=== PATIENT | female | born 1995 | race Caucasian/White ===

== ENCOUNTER 2021-10-15 20:18 | Emergency (ER) | payer MEDICAID, SELFPAY ==
--- NOTE | 2021-10-15 20:22 | ECG_ITS ---
Test Reason : cp Blood Pressure : / mmHG Vent. Rate : 110 BPM Atrial Rate : 110 BPM P-R Int : 160 ms QRS Dur : 084 ms QT Int : 336 ms P-R-T Axes : 031 009 024 degrees QTc Int : 454 ms Sinus tachycardia Otherwise normal ECG No previous ECGs available Referred By: Generic ED Physician Electronically Signed By:MARK JURADO MD
[2021-10-15 20:26] VITALS: BP 115/70; PULSE 102; RESP 18; TEMP 37; O2SAT 100; BMI 43.0
[2021-10-15 20:39] LABS: MANUAL DIFF FLAG NO
[2021-10-15 20:47] LABS: Basophils Percent Auto 0.1 % (0-2); Eosinophils Percent Auto 0.6 % (0-4); Hematocrit 34.1 % (37.0-47.0); Hemoglobin 10.5 g/dl (12.0-16.0); Imm Gran Abs Auto 0.01 X10*3/uL (0.00-0.03); Imm Gran Pct Auto 0.1 % (0.0-0.4); Lymphocytes Absolute Auto 2.3 X10*3/uL (1.2-4.9); Lymphocytes Percent Auto 33.3 % (20-40); Mean Corpuscular HGB Conc 30.8 g/dl (31.0-35.0); Mean Platelet Volume 10.7 fL (9.4-12.3); Monocytes Absolute Auto 0.4 X10*3/uL (0.1-1.2); Neutrophils Absolute Auto 4.2 x10*3/uL (2.0-8.3); Neutrophils Percent Auto 59.9 % (45-73); Platelet Count 274 X10*3/uL (160-400); Red Blood Count 4.37 X10*6/uL (4.20-5.50); Red Cell Distribution Width 14.5 % (11.0-16.0)
[2021-10-15 21:04] LABS: Alanine Aminotransferase 11 U/L (0-31); Albumin Level 3.9 g/dL (3.5-5.0); Alkaline Phosphatase 88 U/L (39-117); Anion Gap 11 (12-20); Aspartate Amino Transferase 15 U/L (5-31); Bilirubin Total < 0.2 mg/dL (0.0-1.0); Blood Urea Nitrogen 12 mg/dL (9-16); Calcium 8.3 mg/dL (8.4-10.2); Carbon Dioxide 24 mmol/L (22-29); Chloride 106 mmol/L (96-108); Creatinine Clr Calc Pharmacy 122.7; Estimated Glomerular Filt Rate > 60; Glucose Random 102 mg/dL (60-115); Potassium 3.9 mmol/L (3.3-5.1); Sodium 137 mmol/L (135-145)
[2021-10-15 21:08] LABS: Troponin-I High Sensitivity < 3.5 ng/L (<3.5-17.0)
[2021-10-15 23:15] LABS: HCG Quantitative < 2 mIU/mL
[2021-10-16 01:17] LABS: Appearance Urine HAZY; Color Urine YELLOW; Glucose Urine UA NEG (NEG); Leukocyte Esterase Urine NEG (NEG); Nitrite Urine NEG (NEG); PH 6.5 (5.0-8.0); Specific Gravity - Urine 1.025 (1.005-1.025); Urine Blood NEG (NEG); Urine Ketones NEG (NEG); Urine Protein NEG (NEG-TRACE)
--- NOTE | 2021-10-16 01:38 | ED.CHESTPAIN ---
HPI - Chest Pain General Chief Complaint: Chest Pain Stated Complaint: chest pain, sob, dizziness, Left side pain Time Seen by Provider: 10/15/21 22:45 Source: patient Mode of arrival: ambulatory History of Present Illness HPI narrative: 26-year-old female who presents with complaints of sharp transient left-sided chest wall pain that was not associated with any dizziness, diaphoresis, nausea but states she initially felt short of breath and then has past but she notes that she has had left arm pain and rib pain. This has not been associated with any fever, chills, nausea, vomiting but patient does states that she is anemic but does not wish to take iron pills and reports she has had heavy periods. LMP is 09/21. No family history of early cardiac disease. Related Data Allergies Allergy/AdvReac Type Severity Reaction Status Date / Time No Known Allergies Allergy Unverified 12/19/19 16:43 [No Known Allergies*] Review of Systems Review of Systems: Pertinent positives and negatives as stated in HPI 10 point review of systems is otherwise negative. PMFSH Past Medical History Source: nursing notes reviewed Social History Social History Advance Directives: No Advance Directives Information Provided: Yes Physical Exam Vital Signs: Vital Signs: Last Vital Signs Temp 98.6 F 10/15/21 20:26 Pulse 102 H 10/15/21 20:26 Resp 18 10/15/21 20:26 BP 115/70 10/15/21 20:26 Pulse Ox 100 10/15/21 20:26 O2 Del Method 10/15/21 20:26 BMI result Body Mass Index 43.0 VITAL SIGNS: Reviewed. GENERAL: Well developed, well nourished, in no acute distress. HEAD: Normocephalic/atraumatic EYES: PERRLA, EOMI EARS: Ext canals without abnormality OROPHARYNX: no oral lesions noted, posterior pharynx clear LUNGS: Normal breath sounds. No adventitious sounds or accessory muscle use. SpO2<100> CARDIOVASCULAR: Regular rate and rhythm without noted murmurs, no JVD or lower extremity edema. ABDOMEN: Soft, non-tender, non-distended with bowel sounds. MUSCULOSKELETAL: No tenderness, deformities, or effusions noted on gross inspection. EXTREMITIES: No cyanosis, clubbing or edema. SKIN: Inspection of the skin reveals no rashes NEUROLOGIC: Alert and oriented x 4. Strength and sensation to light touch were grossly intact x 4. Course Course Course Narrative: 26-year-old female with history and clinical presentation consistent with left anterior chest wall pain and low clinical suspicion for pneumonia, cardiac ischemia. Patient is PERC negative Review of all investigations otherwise negative for acute findings, EKG is without evidence of cardiac ischemia and patient is not . Patient was provided with all results and encouraged to follow-up with primary care provider on Monday morning for further evaluation and outpatient workup. MDM - Chest Pain Lab Data Result diagrams: 10/15/21 20:35 10/15/21 20:35 Labs: Lab Results 10/15/21 10/15/21 10/15/21 Range/Units 20:35 20:35 20:35 WBC 7.0 (4.8-10.8) X10*3/uL RBC 4.37 (4.20-5.50) X10*6/uL Hgb 10.5 L (12.0-16.0) g/dl Hct 34.1 L (37.0-47.0) % MCV 78.0 L (80.0-98.0) fL MCH 24.0 L (27.0-33.0) pg MCHC 30.8 L (31.0-35.0) g/dl RDW 14.5 (11.0-16.0) % Plt Count 274 (160-400) X10*3/uL MPV 10.7 (9.4-12.3) fL Immature Gran % (Auto) 0.1 (0.0-0.4) % Neut % (Auto) 59.9 (45-73) % Lymph % (Auto) 33.3 (20-40) % [place] % (Auto) 6.0 (2-11) % Eos % (Auto) 0.6 (0-4) % Baso % (Auto) 0.1 (0-2) % Lymph # (Auto) 2.3 (1.2-4.9) X10*3/uL [place] # (Auto) 0.4 (0.1-1.2) X10*3/uL Eos # (Auto) 0.0 (0.0-0.4) X10*3/uL Baso # (Auto) 0.0 (0.0-0.2) X10*3/uL Abs Immat Gran (auto) 0.01 (0.00-0.03) X10*3/uL Absolute Neuts (auto) 4.2 (2.0-8.3) x10*3/uL Absolute Nucleated RBC 0.000 (0.0-0.012) X10*3/uL Nucleated RBC % (auto) 0.0 (0.0-0.2) /100WBC Sodium 137 (135-145) mmol/L Potassium 3.9 (3.3-5.1) mmol/L Chloride 106 (96-108) mmol/L Carbon Dioxide 24 (22-29) mmol/L Anion Gap 11 L (12-20) BUN 12 (9-16) mg/dL Creatinine 0.75 (0.5-1.4) mg/dL Estim Creat Clear Calc 122.7 Estimated GFR > 60 Random Glucose 102 (60-115) mg/dL Calcium 8.3 L (8.4-10.2) mg/dL Total Bilirubin < 0.2 (0.0-1.0) mg/dL AST 15 (5-31) U/L ALT 11 (0-31) U/L Alkaline Phosphatase 88 (39-117) U/L Troponin I High Sens < 3.5 (<3.5-17.0) ng/L Total Protein 7.0 (6.5-8.0) g/dL Albumin 3.9 (3.5-5.0) g/dL Beta HCG, Quant < 2 mIU/mL Urine Color Urine Appearance Urine pH (5.0-8.0) Ur Specific [place] (1.005-1.025) Urine Protein (NEG-TRACE) MG/DL Urine Glucose (UA) (NEG) MG/DL Urine Ketones (NEG) MG/DL Urine Blood (NEG) Urine Nitrite (NEG) Ur Leukocyte Esterase (NEG) 10/16/21 Range/Units 00:54 WBC (4.8-10.8) X10*3/uL RBC (4.20-5.50) X10*6/uL Hgb (12.0-16.0) g/dl Hct (37.0-47.0) % MCV (80.0-98.0) fL MCH (27.0-33.0) pg MCHC (31.0-35.0) g/dl RDW (11.0-16.0) % Plt Count (160-400) X10*3/uL MPV (9.4-12.3) fL Immature Gran % (Auto) (0.0-0.4) % Neut % (Auto) (45-73) % Lymph % (Auto) (20-40) % [place] % (Auto) (2-11) % Eos % (Auto) (0-4) % Baso % (Auto) (0-2) % Lymph # (Auto) (1.2-4.9) X10*3/uL [place] # (Auto) (0.1-1.2) X10*3/uL Eos # (Auto) (0.0-0.4) X10*3/uL Baso # (Auto) (0.0-0.2) X10*3/uL Abs Immat Gran (auto) (0.00-0.03) X10*3/uL Absolute Neuts (auto) (2.0-8.3) x10*3/uL Absolute Nucleated RBC (0.0-0.012) X10*3/uL Nucleated RBC % (auto) (0.0-0.2) /100WBC Sodium (135-145) mmol/L Potassium (3.3-5.1) mmol/L Chloride (96-108) mmol/L Carbon Dioxide (22-29) mmol/L Anion Gap (12-20) BUN (9-16) mg/dL Creatinine (0.5-1.4) mg/dL Estim Creat Clear Calc Estimated GFR Random Glucose (60-115) mg/dL Calcium (8.4-10.2) mg/dL Total Bilirubin (0.0-1.0) mg/dL AST (5-31) U/L ALT (0-31) U/L Alkaline Phosphatase (39-117) U/L Troponin I High Sens (<3.5-17.0) ng/L Total Protein (6.5-8.0) g/dL Albumin (3.5-5.0) g/dL Beta HCG, Quant mIU/mL Urine Color YELLOW Urine Appearance HAZY Urine pH 6.5 (5.0-8.0) Ur Specific [place] 1.025 (1.005-1.025) Urine Protein NEG (NEG-TRACE) MG/DL Urine Glucose (UA) NEG (NEG) MG/DL Urine Ketones NEG (NEG) MG/DL Urine Blood NEG (NEG) Urine Nitrite NEG (NEG) Ur Leukocyte Esterase NEG (NEG) ECG Data ECG #1: Attestation: I personally reviewed and interpreted this ECG as follows: Prior ECG tracings: not available for review Interpretation: Sinus tachycardia, HR-110, AR/QRS/QTC are within normal limits. Discharge Plan Discharge Clinical Impression: Atypical chest pain Patient Disposition: Home, Self-Care Instructions: Chest Wall Pain (ED) Additional Instructions: Please call the office of your primary care provider on Monday morning and follow-up for re-evaluation further outpatient management. Referrals: [facility] [Primary Care Provider] -
== END 2021-10-16 01:52 | disposition home or self-care (01) ==
PROVIDERS: Emergency Provider Student in an Organized Health Care Education/Training Program
DX: R07.89 Other chest pain (principal); R00.0 Tachycardia, unspecified; D64.9 Anemia, unspecified
CPT/HCPCS: 36415; 80053; 81003; 84484; 84702; 85025; 93005; 99283

== ENCOUNTER 2021-11-22 11:52 | Outpatient (REF) | payer MEDICAID, SELFPAY ==
--- NOTE | ~2021-11-22 | US_ITS ---
EXAMINATION: US DIAGNOSTIC ULTRASOUND BREAST, LEFT CLINICAL INFORMATION: Left breast focal tenderness upper outer quadrant. COMPARISON: None. TECHNIQUE: Ultrasound of the breast is performed with real-time pfeiffer scale imaging and color Doppler. FINDINGS: There is no focal suspicious finding. There is no solid mass, architectural abnormality, duct ectasia, or edema in the soft tissue planes. Results are discussed with the patient at time of visit. US/US breast LT limited IMPRESSION: No suspicious left breast findings. ASSESSMENT: BI-RADS 1: Negative RECOMMENDATION: 1. Patient should be managed based on the clinical impression. 2. Otherwise, routine annual screening mammography starting at age 40..
== END 2021-11-22 11:53 | disposition home or self-care (01) ==
LOC: HO.MAMMO 11:52
PROVIDERS: PCP General Practice; Visit Provider General Practice
DX: N64.4 Mastodynia (principal)
CPT/HCPCS: 76642

== ENCOUNTER → 2022-06-29 09:03 | Outpatient (BNVA) | payer MEDICAID, SELFPAY | PROVIDERS: PCP General Practice; Referring Provider General Practice; Visit Provider Internal Medicine Cardiovascular Disease | DX: R00.2 Palpitations (principal) | CPT/HCPCS: 99202 ==

== ENCOUNTER → 2022-07-07 14:13 | Outpatient (REF) | payer MEDICAID, SELFPAY ==
--- NOTE | 2022-07-07 14:24 | HM_ITS ---
* Total monitoring time 1 day 10 hours. * Underlying rhythm is sinus. Average ventricular rate 86/Min. Range 65 to 146/Min. * No significant supraventricular or ventricular ectopy. * No sustained arrhythmias. * No significant pauses or AV blocks. * Patient marker count used once in association with sinus. Diary entry correlates with sinus. MTDD
--- NOTE | 2022-07-07 14:24 | CA_ITS ---
Transthoracic Echo with Contrast Patient (Last, First, Middle): Sienna Ortega, Gender: Female Date of : 1995 Age: 27 Procedure Date: 07/07/2022 Procedure Type: Transthoracic Echo with Contrast Location: OP Height: 152.4 cm Weight: 81.65 kg BSA: 1.78 m2 Heart Rate: bpm BP: 112 / 75 mmHg Teaching Pastor: ISMA Referring MD: Rohan Gayle MD Cable Assembler: Rohan Gayle MD Symptoms: R00.2 - Palpitations Study Quality: Fair, contrast ECG Rhythm: Sinus Conclusions: - Normal study Findings Left Ventricle Normal left ventricular size, thickness, and systolic function. The visually estimated ejection fraction is between 55-60%. Diastolic function is normal for age. Right Ventricle Normal right ventricular cavity size and systolic function. Atria Both atria are normal in size. There is no evidence of interatrial shunt. Aortic Valve Normal aortic valve structure and function. There is no aortic valve stenosis. There is no aortic valve regurgitation. Mitral Valve Normal mitral valve structure and function. There is trace mitral valve regurgitation. There is no mitral valve stenosis. Pulmonic Valve The pulmonic valve is likely normal. Tricuspid Valve Normal tricuspid valve structure. There is trace tricuspid valve regurgitation. The right ventricular systolic pressure is normal. The right ventricular systolic pressure is 18 mmHg. Normal right atrial pressure. There is no evidence of pulmonary hypertension. Great Vessels All visible segments of the aorta are normal in size. The pulmonary artery was not well visualized. Venous The inferior vena cava is normal in size and collapses greater than 50% with inspiration. Pericardium/Pleural There is no evidence of pericardial effusion. Prior Study Comparison No prior study available for comparison. Measurements 2D Linear Measurements IVSd: 0.90 0.6-0.9/0.6-1.0 cm LVIDd: 4.80 3.9-5.3/4.2-5.9 cm LVIDd Index: 2.70 2.4-3.2/2.2-3.1 cm/m2 LVIDs: 2.72 2.0-3.6 cm LVPWd: 0.80 0.7-1.1 cm LA Diam: 3.20 2.7-3.8/3.0-4.0 cm LAIDs Index: 1.80 1.5-2.3 cm/m2 LV Mass: 170.99 67-162/88-224 g LV Mass Index: 96.06 43-95/49-115 g/m2 LVOT Diam: 2.00 3.0+(-)1.3 cm Mitral Valve MV Pk E: 0.70 MV PK A: 0.59 MV Decel Time: 139.00 E/A: 1.20 E'Lateral: 16.50 E'Medial: 8.70 E/E' Med: 8.10 E/E' Lat: 4.30 PHT: 41.00 MVA PHT: 5.37 Decel [place]: 5.05 Aortic Valve AoV Pk Brayden: 1.38 AoV Mn Brayden: 1.00 AoV VTI: 0.29 AoV Pk Grad: 8.00 Aov Mn Grad: 4.00 LATONYA Cont.VTI: 2.51 LVOT LVOT Pk Brayden: 1.11 LVOT Mn Brayden: 0.77 LVOT VTI: 0.23 LVOT Pk Grad: 5.00 LVOT Mn Grad: 3.00 LVOT Diam: 2.00 LVOT Area: 3.14 Diastolic Function MV Pk E: 0.70 MV Pk A: 0.59 E/A: 1.20 E'Medial: 8.70 E/E' Med: 8.10 E' Laterial: 16.50 E/E' Lat: 4.30 Right Ventricle TAPSE (mm): 17.80 TVS' Brayden: 11.10 Tricuspid Valve TR Pk Brayden: 1.93 TR Pk Grad: 15.00 RA Press: 3.00 RVSP: 18.00 Great Vessels Aorta Sinus of Valsalva: 2.95 2.0-3.[address] [place]: 2.01 1.7-3.4 cm Ao Asc: 2.20 2.1-3.4 cm Updated in Other Vendor System with Status of Final Rohan Gayle MD electronically signed on 07/08/2022 8:22:41 AM with status of Final
== END ==
LOC: HO.CARD 14:13
PROVIDERS: PCP General Practice; Visit Provider Internal Medicine Cardiovascular Disease
DX: R00.2 Palpitations (principal)
CPT/HCPCS: 93225; 93306; Q9957

== ENCOUNTER 2023-08-21 16:27 | Outpatient (REF) | payer MEDICAID, SELFPAY ==
--- NOTE | ~2023-08-21 | XR_ITS ---
EXAMINATION: XR CHEST CLINICAL INFORMATION: Posterior lower rib cage pain with inspiration for 5 days. Patient states shortness of breath with pain in lower ribs upon inspiration with no known injury. COMPARISON: None available. TECHNIQUE: 2 views of the chest were obtained. FINDINGS: Lung volumes are low. Heart size is normal. There is no gross pneumothorax. No pleural effusion. No new focal consolidation to suggest pneumonia. XR/XR chest 2V IMPRESSION: No evidence of pneumonia.
== END 2023-08-21 16:28 | disposition home or self-care (01) ==
LOC: HO.XRAY 16:27
PROVIDERS: Visit Provider Internal Medicine Geriatric Medicine
DX: R07.81 Pleurodynia (principal)
CPT/HCPCS: 71046

== ENCOUNTER 2023-08-28 03:35 | Emergency (ER) | payer MEDICAID, SELFPAY ==
[2023-08-28 03:37] VITALS: BP 154/94; PULSE 117; RESP 18; TEMP 36.6; O2SAT 98; BMI 37.1
[2023-08-28 04:27] LABS: Influenza A PCR NEGATIVE (Negative); Influenza B PCR NEGATIVE (Negative); Resp Syncy Virus RNA Qual PCR NEGATIVE (Negative); SARS COV2 PCR INHOUSE NEGATIVE (Negative)
--- NOTE | 2023-08-28 07:24 | PC.NURSE ---
Resumed care of patient, she is currently resting comfortably at this time on RA, breathing pattern even and unlabored, lungs clear. MD at bedside with patient.
--- NOTE | 2023-08-28 07:31 | ED.SOB ---
HPI - SOB/Dyspnea General Chief Complaint: Dyspnea Stated Complaint: trouble breathing Time Seen by Provider: 08/28/23 07:11 Source: patient Mode of arrival: ambulatory History of Present Illness ED Provider: Dr Domingo HPI Narrative: 28-year-old female with history of asthma states she has had nasal congestion sore throat and dry cough with dyspnea for the past week without fever or chills. Related Data Home Medications ?Medication ?Instructions ?Recorded ?Confirmed albuterol sulfate 90 mcg/actuation 2 puff inhalation QID PRN 06/29/22 06/29/22 aerosol inhaler (ProAir HFA) vit no.95-ferrous 1 tab PO DAILY 06/29/22 06/29/22 fumarate 28 mg-folic acid 800 mcg tablet () Previous Rx's ?Medication ?Instructions ?Recorded prednisone 50 mg tablet 50 mg PO DAILY 4 days #4 tabs 08/28/23 Allergies Allergy/AdvReac Type Severity Reaction Status Date / Time Fish Containing Products AdvReac Mild tongue Verified 08/28/23 03:41 cats Allergy Intermediate Sneezing Uncoded 06/29/22 09:10 Review of Systems Review of Systems: Pertinent positives and negatives as stated in HPI [facility] Past Medical History Source: nursing notes reviewed Family History Family History Mother Goiter Father Hypertension Maternal Grandmother Cancer Social History Social History Alcohol intake: never Patient Tobacco Use Status: Never used Tobacco Advance Directives: No Do you have a plan to hurt others: No Plan Physical Exam Vital Signs: Vital Signs: Last Vital Signs Temp 97.9 F 08/28/23 03:37 Pulse 117 H 08/28/23 03:37 Resp 18 08/28/23 03:37 BP 154/94 H 08/28/23 03:37 Pulse Ox 98 08/28/23 03:37 O2 Del Method Room Air 08/28/23 03:37 BMI result Body Mass Index 37.1 VITAL SIGNS: Reviewed. GENERAL: Elevated BMI, Well developed, well nourished, in no acute distress. HEAD: Normocephalic/atraumatic EYES: PERRLA, EOMI EARS: Ext canals without abnormality, TMs non-bulging and non-erythematous NOSE: Nares patent bilateral OROPHARYNX: no oral lesions noted, posterior pharynx clear and non-erythematous without noted tonsillar enlargement/erythema/exudates NECK: Supple, no adenopathy LUNGS: Normal breath sounds. No adventitious sounds or accessory muscle use. SpO2<98> CARDIOVASCULAR: Regular rate and rhythm without noted murmurs ABDOMEN: Soft, non-tender, non-distended with bowel sounds. MUSCULOSKELETAL: No tenderness, deformities, or effusions noted on gross inspection. EXTREMITIES: No cyanosis, clubbing or edema. SKIN: Inspection of the skin reveals no rashes NEUROLOGIC: Alert and oriented x 4. Strength and sensation to light touch were grossly intact x 4. Medical Decision Making Medical Decision Making [facility] Narrative: 28-year-old female with history and clinical presentation, DDX: Allergic rhinitis, postnasal drip, asthma without exacerbation I reviewed all investigations and viral testing is negative for influenza/RSV/COVID-19. I reviewed the chest x-ray from 08/20 I do not appreciate any infiltrates or venous congestion but chest x-ray is pending official radiologic read. Patient provided with recommendations for seasonal allergy medication as well as placed on a short course of steroids and received the 1st dose here in the emergency room. Differential Diagnosis Differential Diagnoses: The differential diagnosis associated with the presentation includes Please see the discussion above Admission/Observation Consideration of admission/observation: Escalation of care including admission/observation considered Please see the discussion above Lab Data [facility] Lab Attestation statement: I reviewed the patient's lab results. Please see the discussion above Labs: Lab Results 08/28/23 Range/Units 03:44 Influenza Type A (PCR) NEGATIVE (Negative) Influenza Type B (PCR) NEGATIVE (Negative) RSV RNA Qual (PCR) NEGATIVE (Negative) SARS-CoV-2 RNA (RT-PCR) NEGATIVE (Negative) Radiology Impression Discussion of test interpretation with radiology: I have reviewed the radiologist's reading. Radiologist Impression: Please see the discussion above External Record Review External record reviewed: Outpatient record and Prior outpatient labs Critical Care Time Critical Care Time Critical Care Time: Yes Total Critical Care Time: 30 Attestation: I personally attest to this time spent taking care of the patient. Discharge Plan Discharge Clinical Impression: Asthma, Allergic rhinitis Patient Disposition: Home, Self-Care Instructions: Asthma (ED), Allergic Rhinitis (ED) Additional Instructions: 1. Recommend initiating daily Claritin/Flonase during the allergy season. 2. Complete the short course of steroids as prescribed. 3. Follow-up with your primary care doctor on or Monday of this week. Return to the ER for any worsening symptoms. Prescriptions: New prednisone 50 mg tablet 50 mg PO DAILY 4 Days Qty: 4 0RF No Action PNV cmb#95-ferrous fumarate-FA [] 28 mg iron- 800 mcg tablet 1 tab PO DAILY albuterol sulfate [ProAir HFA] 90 mcg/actuation HFA aerosol inhaler 2 puff inhalation QID PRN Referrals: Alejandra Patel MD [Primary Care Provider] - Print Language: Estonian
[2023-08-28] MEDS: predniSONE 10 MG TABLET 50 MG PO (08:10)
[2023-08-28 08:12] VITALS: BP 128/88; PULSE 100; RESP 16; TEMP 37.2; O2SAT 95
[2023-08-28 08:13] VITALS: BP 128/88; PULSE 100; RESP 16; TEMP 37.2; O2SAT 95
== END 2023-08-28 08:14 | disposition home or self-care (01) ==
PROVIDERS: Emergency Provider Student in an Organized Health Care Education/Training Program; PCP General Practice
DX: J45.909 Unspecified asthma, uncomplicated (principal)
CPT/HCPCS: 0241U; 99283; 99284

== ENCOUNTER 2023-10-24 17:01 | Emergency (ER) | payer MEDICAID, SELFPAY ==
[2023-10-24] VITALS (7 sets, daily range): BP systolic 113–146; BP diastolic 76–96; PULSE 77–106; RESP 14–18; TEMP 36.3–36.9; O2SAT 98–100; BMI 39.0
--- NOTE | ~2023-10-24 | CT_ITS ---
EXAMINATION: CT HEAD WITHOUT CONTRAST CLINICAL INFORMATION: Migraine. COMPARISON: None available. TECHNIQUE: Contiguous axial imaging was performed from the skull base to vertex without intravenous administration of contrast. This CT examination was performed using dose optimization techniques as appropriate, variously including the following: *Automated exposure control *Adjustment of mA and/or kV according to patient size (this includes techniques or standardized protocols for targeted exams where dose is matched to indication/reason for exam; i.e. extremities or head) *Use of iterative reconstruction technique DLP: 571 mGy-cm FINDINGS: There is no acute intra-axial, extra-axial bleed, masses or midline shift. There is no acute infarction in evolution. There is no edema. The pfeiffer to white matter differentiation is maintained normal. The lateral ventricles are symmetrical in size and configuration without enlargement. Bone windows reveal no calvarial abnormality. Bilateral paranasal sinuses and mastoid air cells are well-aerated. CT/CT head/brain wo IV con IMPRESSION: No acute intracranial process seen.
[2023-10-24 17:37] LABS: MANUAL DIFF FLAG NO
[2023-10-24 17:42] LABS: Basophils Percent Auto 0.2 % (0-2); Eosinophils Percent Auto 0.3 % (0-4); Hematocrit 37.1 % (37.0-47.0); Hemoglobin 11.3 g/dl (12.0-16.0); Imm Gran Abs Auto 0.01 X10*3/uL (0.00-0.03); Imm Gran Pct Auto 0.2 % (0.0-0.4); Lymphocytes Absolute Auto 1.7 X10*3/uL (1.2-4.9); Lymphocytes Percent Auto 26.8 % (20-40); Mean Corpuscular HGB Conc 30.5 g/dl (31.0-35.0); Mean Corpuscular Hemoglobin 24.2 pg (27.0-33.0); Mean Corpuscular Volume 79.6 fL (80.0-98.0); Mean Platelet Volume 10.9 fL (9.4-12.3); Monocytes Absolute Auto 0.4 X10*3/uL (0.1-1.2); Neutrophils Absolute Auto 4.1 x10*3/uL (2.0-8.3); Neutrophils Percent Auto 66.5 % (45-73); Platelet Count 280 X10*3/uL (160-400); Red Blood Count 4.66 X10*6/uL (4.20-5.50); Red Cell Distribution Width 15.5 % (11.0-16.0); White Blood Count 6.2 X10*3/uL (4.8-10.8)
--- NOTE | 2023-10-24 17:50 | PC.NURSE ---
Pt comes to ED today with c/o dizziness, lightheaded, LINDQUIST, nausea, brain fog, and feeling faint. Pt reports symptoms started at the beginning of the month and have been progressively worse with today being the most intense. LINDQUIST pain is 7/10 and reports LINDQUIST every day. VSS, A&Ox3, afebrile. Blood labs pending and Pt will be providing urine spec when she can produce. Pt is resting quietly with rug layer at bedside.
[2023-10-24 17:55] LABS: Alanine Aminotransferase 8 U/L (0-31); Albumin Level 4.1 g/dL (3.5-5.0); Alkaline Phosphatase 86 U/L (39-117); Anion Gap 13 (12-20); Aspartate Amino Transferase 13 U/L (5-31); Bilirubin Direct < 0.2 mg/dL (0.0-0.5); Bilirubin Total 0.2 mg/dL (0.0-1.0); Blood Urea Nitrogen 10 mg/dL (9-16); Calcium 9.1 mg/dL (8.4-10.2); Carbon Dioxide 25 mmol/L (22-29); Chloride 106 mmol/L (96-108); Creatinine Clr Calc Pharmacy 115.5; Estimated Glomerular Filt Rate > 60; Glucose Random 105 mg/dL (60-115); Lipase 10 U/L (8-78); Potassium 3.9 mmol/L (3.3-5.1); Sodium 140 mmol/L (135-145); Total Protein 7.4 g/dL (6.5-8.0)
--- NOTE | 2023-10-24 18:58 | PC.NURSE ---
received report from Nikki Olvera RN, assume care of pt at this time
[2023-10-24 19:01] LABS: Appearance Urine Clear; Color Urine Yellow; Glucose Urine UA Negative (Negative); Leukocyte Esterase Urine Negative (Negative); Nitrite Urine Negative (Negative); PH 7.5 (5.0-9.0); Urine Blood Negative (Negative); Urine Ketones Negative (Negative); Urine Protein Negative (Neg-Trace)
[2023-10-24 19:03] LABS: UPreg QC Valid YES; Urine Pregnancy NEGATIVE (NEGATIVE)
--- NOTE | 2023-10-24 19:53 | ED_ITS ---
HPI - Dizziness General Chief Complaint: Dizziness Stated Complaint: Dizziness/Blurry vision Time Seen by Provider: 10/24/23 19:49 Source: patient and RN notes reviewed Mode of arrival: ambulatory Limitations: no limitations History of Present Illness ED Provider: Melly Melendez PA-C HPI Narrative: This is a 28-year-old female, with no known medical problems, who presents emergency department with complaints of dizziness, headaches, and tingling in her face for the last 3 weeks. She denies any recent trauma or injury to her head. She states that the pain starts in the back of her head and radiates forward. She denies history of migraines in the past. She states that the onset was gradual however states that the pain has been worsening. She has not been taking any medications at home to treat her current symptoms. Denies any fevers, chills, chest pain, shortness of breath, abdominal pain. She endorses some nausea, no vomiting, no urinary symptoms. No recent travel, surgery, hospitalizations. She is not on control. No other complaints or concerns at this time. MD elicited complaint: dizziness Onset (ago): week(s) Timing: gradual onset Severity: moderate Description: off-balance History of similar symptoms: No Exacerbating factors: nothing Relieving factors: nothing Associated symptoms: nausea Related Data Home Medications ?Medication ?Instructions ?Recorded ?Confirmed albuterol sulfate 90 mcg/actuation 2 puff inhalation QID PRN 06/29/22 06/29/22 aerosol inhaler (ProAir HFA) vit no.95-ferrous 1 tab PO DAILY 06/29/22 06/29/22 fumarate 28 mg-folic acid 800 mcg tablet () Previous Rx's ?Medication ?Instructions ?Recorded prednisone 50 mg tablet 50 mg PO DAILY 4 days #4 tabs 08/28/23 Allergies Allergy/AdvReac Type Severity Reaction Status Date / Time Fish Containing Products AdvReac Mild tongue Verified 10/24/23 17:20 cats Allergy Intermediate Sneezing Uncoded 06/29/22 09:10 Review of Systems 2 Review of Systems: Yes all other systems are reviewed and are negative Constitutional: Constitutional: Reports as per [facility] Past Medical History Attestation statement: The following information was validated with the patient. Family History Family History Mother Goiter Father Hypertension Maternal Grandmother Cancer Social History Social History Alcohol intake: never Patient Tobacco Use Status: Never used Tobacco Smoked in Last 30 Days: No Use of substances other than those prescribed or required for medical reasons: No Advance Directives: No Advance Directives Information Provided: No Do you have a plan to hurt others: No Plan Physical Exam 2 Vital Signs: Vital Signs: Last Vital Signs Temp 98.1 F 10/24/23 20:52 Pulse 83 10/24/23 20:52 Resp 18 10/24/23 20:52 BP 122/77 10/24/23 20:52 Pulse Ox 100 10/24/23 20:52 O2 Del Method Room Air 10/24/23 20:52 BMI result Body Mass Index 39.0 Const: General: cooperative, comfortable and no acute distress O rientation/consciousness: patient oriented x3 Limitations: no limitations HEENT: Head: Yes normal to inspection, Yes normocephalic and Yes atraumatic Ears: hearing grossly normal bilaterally General nose exam: Normal external nose present Face and sinus: Yes normal facial exam Mouth: Normal oral and palatal mucosa present, oropharynx normal and moist mucous membranes Throat: Yes posterior oropharynx normal Eyes: General: appearance normal, both eyes and all related structures E yelids: Yes eyelids normal Conjunctivae: conjunctivae normal Sclerae: s clerae normal Pupils: Equal, round and reactive pupils present EOM: EOMs intact bilaterally Neck: Other: No midline spine tenderness, patient has tenderness palpation along the cervical paraspinous muscles, no nuchal rigidity. Tenderness palpation along the bilateral trapezius muscles. Neck: Yes normal visual inspection, Yes full ROM and Yes no lymphadenopathy Lymphatic: no lymphadenopathy noted Chest: Chest palpation & inspection: normal inspection of the chest Resp: Effort & Inspection: normal respiratory effort and able to speak in complete sentences Auscultation: clear to auscultation bilaterally, no crackles, no rales, no rhonchi and no wheezes Cardio: Rate: regular rate Rhythm: regular rhythm Heart sounds: S1 normal heart sound present and S2 normal heart sound present GI: Inspection: Yes normal to inspection Skin: General skin exam: no rashes or lesions noted Trauma: no lacerations or abrasions Wounds: no wounds Neuro: General: patient oriented x3 and moves all extremities Cranial nerves: Yes Equal, round and reactive pupils present Cognition (Neuro): n ormal cognition Gait exam (Neuro): Normal gait present Motor exam (neuro): 5/5 motor strength present throughout and Pronator motor function not present Extrem: General: Yes normal to inspection Right upper extremity: normal to inspection Left upper extremity: normal to inspection Right lower extremity: normal to inspection Left lower extremity: normal to inspection NIH Stroke Scale Internal: Initial- Upon Arrival Time: 23:00 Level of Consciousness: Alert Level of Consciousness Questions: Answers both questions correctly Level of Consciousness Commands: Performs both tasks correctly Best Gaze: Normal Visual: No visual loss Facial Palsy: Normal Motor Arm (Right): No drift Motor Arm (Left): No drift Motor Leg (Right): No drift Motor Leg (Left): No drift Limb Ataxia: Absent Sensory: Normal Best Language: No aphasia Dysarthia: Normal Extinction and Inattention: No abnormality Score: 0 Course Reevaluation(s) Reevaluation #1: Patient feeling much better after receiving migraine cocktail. She no longer has a headache. Discussed return precautions with patient, she will follow-up with her PCP tomorrow. She understands and agrees with plan. Patient stable for discharge. Time: 22:59 Medications Administered Discontinued Medications Generic Name Dose Route Start Last Admin Trade Name Felicianoq PRN Reason Stop Dose Admin Diphenhydramine HCl 50 mg 10/24/23 21:15 10/24/23 21:33 Diphenhydramine Hcl 50 Mg/Ml Vial IVPUSH 10/24/23 21:16 50 mg ONCE ONE Administration Sodium Chloride 1,000 mls @ 999 mls/hr 10/24/23 21:15 10/24/23 21:32 Ns IV 10/24/23 22:15 999 mls/hr .Q1H1M ONE Administration Ketorolac Tromethamine 30 mg 10/24/23 21:15 10/24/23 21:33 Ketorolac Tromethamine 30 Mg/Ml Vial IVPUSH 10/24/23 21:16 30 mg ONCE ONE Administration Metoclopramide HCl 10 mg 10/24/23 21:15 10/24/23 21:32 Metoclopramide Hcl 10 Mg/2 Ml Vial IVPUSH 10/24/23 21:16 10 mg ONCE ONE Administration Medical Decision Making Medical Decision Making MDM Narrative: This is a 28-year-old female who presents emergency department with complaints of headaches, dizziness, and tingling in her face. On arrival, blood pressure mildly elevated 146/89. She is alert and oriented x4. No neurologic deficits on examination. NIH stroke scale of 0. Given no history of migraines, will obtain CT head. Differential diagnoses include tension headache, migraine headache, ICH-unlikely, intracranial mass-unlikely. Will obtain orthostatics, basic labs, UA. Orthostatics were negative, CT head was unremarkable. Will medicate with migraine cocktail and reassess. Differential Diagnosis Differential Diagnoses: The differential diagnosis associated with the presentation includes See above Lab Data MDM Lab Attestation statement: I reviewed the patient's lab results. No leukocytosis, hemoglobin 11.3, chemistry within normal limits, UA noninfectious, she is not . 10/24/23 17:34 10/24/23 17:34 Labs: Lab Results 10/24/23 10/24/23 Range/Units 17:34 18:54 WBC 6.2 (4.8-10.8) X10*3/uL RBC 4.66 (4.20-5.50) X10*6/uL Hgb 11.3 L (12.0-16.0) g/dl Hct 37.1 (37.0-47.0) % MCV 79.6 L (80.0-98.0) fL MCH 24.2 L (27.0-33.0) pg MCHC 30.5 L (31.0-35.0) g/dl RDW 15.5 (11.0-16.0) % Plt Count 280 (160-400) X10*3/uL MPV 10.9 (9.4-12.3) fL Immature Gran % (Auto) 0.2 (0.0-0.4) % Neut % (Auto) 66.5 (45-73) % Lymph % (Auto) 26.8 (20-40) % [place] % (Auto) 6.0 (2-11) % Eos % (Auto) 0.3 (0-4) % Baso % (Auto) 0.2 (0-2) % Lymph # (Auto) 1.7 (1.2-4.9) X10*3/uL [place] # (Auto) 0.4 (0.1-1.2) X10*3/uL Eos # (Auto) 0.0 (0.0-0.4) X10*3/uL Baso # (Auto) 0.0 (0.0-0.2) X10*3/uL Abs Immat Gran (auto) 0.01 (0.00-0.03) X10*3/uL Absolute Neuts (auto) 4.1 (2.0-8.3) x10*3/uL Absolute Nucleated RBC 0.000 (0.0-0.012) X10*3/uL Nucleated RBC % (auto) 0.0 (0.0-0.2) /100WBC Sodium 140 (135-145) mmol/L Potassium 3.9 (3.3-5.1) mmol/L Chloride 106 (96-108) mmol/L Carbon Dioxide 25 (22-29) mmol/L Anion Gap 13 (12-20) BUN 10 (9-16) mg/dL Creatinine 0.74 (0.5-1.4) mg/dL Estim Creat Clear Calc 115.5 Estimated GFR > 60 Random Glucose 105 (60-115) mg/dL Calcium 9.1 D (8.4-10.2) mg/dL Total Bilirubin 0.2 (0.0-1.0) mg/dL Direct Bilirubin < 0.2 (0.0-0.5) mg/dL AST 13 (5-31) U/L ALT 8 (0-31) U/L Alkaline Phosphatase 86 (39-117) U/L Total Protein 7.4 (6.5-8.0) g/dL Albumin 4.1 (3.5-5.0) g/dL Lipase 10 (8-78) U/L TSH 1.23 (0.32-4.0) uIU/mL Urine Color Yellow Urine Appearance Clear Urine pH 7.5 (5.0-9.0) Ur Specific [place] 1.010 (1.005-1.025) Urine Protein Negative (Neg-Trace) mg/dL Urine Glucose (UA) Negative (Negative) mg/dL Urine Ketones Negative (Negative) mg/dL Urine Blood Negative (Negative) Urine Nitrite Negative (Negative) Ur Leukocyte Esterase Negative (Negative) Urine Test NEGATIVE (NEGATIVE) Radiology Impression Discussion of test interpretation with radiology: I have reviewed the radiologist's reading. External Record Review External record reviewed: Inpatient record, Office record, Outpatient record, Prior outpatient labs, Prior outpatient radiology, Primary care record and Outside ED record Discharge Plan Discharge Clinical Impression: Acute tension headache Patient Disposition: Home, Self-Care Instructions: Tension Headache (ED) Additional Instructions: You were seen in the emergency department due to headache. Your workup today was reassuring. Gentle stretching, heat or ice, alternating between ibuprofen and Tylenol can be beneficial for headaches. Your headache resolved after receiving a migraine cocktail. Please drink plenty of fluids and get plenty of rest. Follow-up with your primary care physician tomorrow, call to make an appointment. If any new or worsening symptoms occur including but not limited to severe headache, dizziness, chest pain or shortness of breath, please return for re- evaluation. Prescriptions: No Action prednisone 50 mg tablet 50 mg PO DAILY 4 Days Qty: 4 0RF PNV cmb#95-ferrous fumarate-FA [] 28 mg iron- 800 mcg tablet 1 tab PO DAILY albuterol sulfate [ProAir HFA] 90 mcg/actuation HFA aerosol inhaler 2 puff inhalation QID PRN Print Language: Indonesian
--- NOTE | 2023-10-24 20:22 | PC.NURSE ---
pt up walking around room, denies any needs at this time, waiting on test results
[2023-10-24 20:48] LABS: Thyroid Stimulating Hormone 1.23 uIU/mL (0.32-4.0)
[2023-10-24] MEDS: Metoclopramide HCl 10 MG/2 ML VIAL IVPUSH (21:32)
[2023-10-24] MEDS: 0.9 % Sodium Chloride 1,000 ML 999 ML IV (21:32)
[2023-10-24] MEDS: Ketorolac Tromethamine 30 MG/ML VIAL IVPUSH (21:33)
[2023-10-24] MEDS: diphenhydrAMINE HCL 50 MG/ML VIAL IVPUSH (21:33)
--- NOTE | 2023-10-24 22:25 | PC.NURSE ---
pt states headache is gone and she feels like she can go home.
== END 2023-10-24 23:03 | disposition home or self-care (01) ==
PROVIDERS: Physician Assistant Medical; Emergency Provider Emergency Medicine; PCP General Practice
DX: G44.209 Tension-type headache, unspecified, not intractable (principal); R42 Dizziness and giddiness; R20.2 Paresthesia of skin; Z79.899 Other long term (current) drug therapy
CPT/HCPCS: 36415; 70450; 80048; 80076; 81003; 81025; 83690; 84443; 85025; 96361; 96374; 96375; 99284; 99285; J1200; J1885; J2765

== ENCOUNTER 2025-03-04 16:06 | Outpatient (REF) | payer MEDICAID, SELFPAY ==
--- OUTSIDE RECORDS SUMMARY | 2025-03-04 14:00 | XMS_ITS | Encounter Summary ---
Author Organization [employer] Address [address] 7 [place] [address] Care Team Providers Care Marketing And Outreach Coordinator Name Role Phone Alejandra Patel MD Primary Care Provider [phone] Reason for Visit * Reason Comments UTI Encounter Details Date Type Department Care Team ([facility] Contact Info) Description 03/04/2025 2:00 PM EST Office Visit [facility] [address] [place] [address] Debby Salmeron FNP [address] [place] [address] UTI symptoms Social History Tobacco Use Types Packs/Day Years Used Date Smoking Tobacco: Never Smokeless Tobacco: Never Tobacco Cessation:Counseling Given: Not Answered Alcohol Use Standard Drinks/Week Comments Never 0 (1 standard drink = 0.6 oz pur e alcohol) Depression Answer Date Recorded Patient Health Questionnaire-9 Score 0 11/17/2023 Patient Health Questionnaire-9 Score 0 11/17/2023 Last PHQ-9: Questionnaire Data Not on file 0 11/17/2023 Housing Stability Answer Date Recorded What is your housing situation today? I have dulce clements 11/17/[address] you li ve. Do you have problems with any of the following? None of the above 11/17/2023 Food Insecurity Answer Date Recorded Within the past 12 months, y ou worried that your food would run out before you got money to buy more: Never True 11/17/2023 Within the past 12 months,th e food you bought just didn't last and you didn't have enough money to get more: Never True Transportation Answer Date Recorded In the past 12 months, has l ack of transportation kept you from medical appts, meetings, work or from getting things needed for daily living? Yes, it has kept me from medical appointments or getting medications. 11/17/2023 Utilities Answer Date Recorded In the past 12 months, has t he electric, gas, oil or water company threatened to shut off services in your home? No 11/17/2023 Depression Answer Date Recorded Patient Health Questionnaire-2 Score 0 11/17/2023 Internet Access Answer Date Recorded Internet Access Q1 Yes 12/04/2023 Internet Access Q2 Not on file 12/04/2023 Comments Unknown Sex and Gender Information Value Date Recorded Sex Assigned at Female 01/31/2022 10:15 AM EDT Legal Sex Female 10:15 AM EDT Gender Identity Female 04/11/2022 6:30 PM EST Sexual Orientation Choose not to disclose 2021 10:15 AM EDT documented as of this encounter Last Filed Vital Signs Vital Sign Reading Time Taken Comments Blood Pressure 132/87 03/04/2025 1:23 PM EST Pulse 82 03/04/2025 1:23 PM EST Temperature 36.7 C (98.1 F) 03/04/2025 1:23 PM EST Respiratory Rate 16 03/04/2025 1:23 PM EST Oxygen Saturation 99% 03/04/2025 1:23 PM EST Inhaled Oxygen Concentration - - Weight 89.8 kg (198 lb) 03/04/2025 1:23 PM EST Height - - Body Mass Index 37.72 11/17/2023 2:53 PM EDT documented in this encounter Plan of Treatment Upcoming Encounters Date Type Department Care Team (Late st Contact Info) Description 03/25/2025 10:30 AM EST Office Visit [facility] [address] [place] [address] Alejandra Patel MD [address] [place] [address] Scheduled Orders Name Type Priority Associated Diagnoses Orde r Schedule Bacterial Vaginosis Microbiology Routine UTI symptoms Ordered: 03/04/2025 Chlamydia/N. Gonorrhoeae RNA, TMA, Urogenitial Microbiology Routine UTI symptoms Ordered: 03/04/2025 documented as of this encounter Procedures Procedure Name Priority Date/Time Associated Diagnosis Comments POCT URINALYSIS DIPSTICK Routine 03/04/2025 1:31 PM EST UTI symptoms documented in this encounter Results * POCT urinalysis dipstick manually resulted (CPT 71228) (03/04/2025 1:31 PM EST) Color, UA Yellow Clarity, UA Clear Glucose, UA Negative Bilirubin, UA Few 15 Comment:Small Ketones, UA Negative Spec Grav, UA 1.025 Blood, UA Negative Negative, None Detected pH, UA 6.0 Protein, UA Negative Urobilinogen, UA 0.2 Leukocytes, UA Negative Negative, Rare, Trace, 1+ (17), 2+ (35), 3+ (70), Trace (15) Nitrite, UA Negative Negative, None Detected Appearance, UA OK Urine (Urine, Random) 03/04/2025 1:31 PM EST Debby Salmeron [facility] POINT OF CARE TEST ENTER/EDIT ORDERABLES Final Result documented in this encounter Visit Diagnoses Diagnosis UTI symptoms documented in this encounter Additional Health Concerns Assessment Noted Time PHQ-9 Depression Total Score: 0 11/17/19 24 2:55 PM EDT documented as of this encounter Care Teams Marketing And Outreach Coordinator Relationship Specialty Start Date End Date Alejandra Patel MD [address] [place] [id number] PCP - General Family Medicine 11/12/21 documented as of this encounter
--- OUTSIDE RECORDS SUMMARY | 2025-03-04 17:15 | XMS_ITS | Encounter Summary ---
Author Organization [employer] Address [address] [place] [phone] Care Team Providers Care Pvc Loader Name Role Phone Alejandra Patel MD Primary Care Provider [phone] Encounter Details Date Type Department Care Team ([facility] Contact Info) Description 04/15/2022 Orders Only [facility] [address] [place] [phone] Alejandra Patel MD [address] [place] [address] [phone] Bacterial vaginosis (Primary Dx) Social History Tobacco Use Types Packs/Day Years Used Date Smoking Tobacco: Never Smokeless Tobacco: Never Alcohol Use Standard Drinks/Week Comments Never 0 (1 standard drink = 0.6 oz pur e alcohol) Comments Unknown Sex and Gender Information Value Date Recorded Sex Assigned at Female 01/31/2022 10:15 AM EDT Legal Sex Female 10:15 AM EDT Gender Identity Female 04/11/2022 6:30 PM EST Sexual Orientation Choose not to disclose 2021 10:15 AM EDT COVID-19 Exposure Response Date Recorded In the last 10 days, have yo u been in contact with someone who was confirmed or suspected to have Coronavirus/COVID-19? No / Unsure 04/11/2022 2:18 PM EST documented as of this encounter Plan of Treatment Upcoming Encounters Date Type Department Care Team ([facility] Contact Info) Description 03/25/2025 10:30 AM EST Office Visit [facility] [address] [place] [address] [phone] Alejandra Patel MD [address] [place] [address] documented as of this encounter Visit Diagnoses Diagnosis Bacterial vaginosis- Primary Unspecified vaginitis and vulvovaginitis documented in this encounter Care Teams Pvc Loader Relationship Specialty Start Date End Date Alejandra Patel MD [address] [place] [address] PCP - General Family Medicine 11/12/21 documented as of this encounter
--- OUTSIDE RECORDS SUMMARY | 2025-03-04 17:15 | XMS_ITS | Encounter Summary ---
Author Organization [employer] Address [address] [facility] [address] [place] [address] Care Team Providers Care Hydraulic Press In Operator Name Role Phone Alejandra Patel MD Primary Care Provider [phone] Encounter Details Date Type Department Care Team (Latest Contact Info) Description 03/04/2025 Travel Social History Tobacco Use Types Packs/Day Years [...] AM EDT documented as of this encounter Plan of Treatment Upcoming Encounters Date Type Department Care Team (Late st Contact Info) Description 03/25/2025 10:30 AM EST Office Visit [facility] [address] [place] [address] [phone] Alejandra Patel MD [address] [place] [phone] documented as of this encounter Visit Diagnoses Not on filedocumented in this encounter Additional Health Concerns Assessment Noted Time PHQ-9 Depression Total Score: 0 11/17/19 24 2:55 PM EDT documented as of this encounter Care Teams Hydraulic Press In Operator Relationship Specialty Start Date End Date Alejandra Patel MD [address] [place] [address] [phone] PCP - General Family Medicine 11/12/21 documented as of this encounter
--- OUTSIDE RECORDS SUMMARY | 2025-03-04 17:16 | XMS_ITS | Clinical Summary ---
Author Organization [employer] Address [address] [facility] [address] [place] [address] Care Team Providers Care Brine Purifier Name Role Phone Alejandra Patel MD Primary Care Provider [phone] Allergies Active Allergy Reactions Criticality Noted Date Comments Cat Dander 08/16/2023 Crab Extract 08/16/2023 Dog Epithelium 08/16/2023 Fish Allergy 08/16/2023 Medications famotidine (Pepcid) 20 MG tablet Take 1 tablet by mouth in the morning and 1 tablet in the evening. 12/29/2021 Active naproxen (Naprosyn) 500 MG tablet Take 1 tablet by mouth in the morning and 1 tablet in the evening. 11/22/2021 Active pyridoxine (Vitamin B-6) 25 MG tablet take one tablet up to every 8 hours for nausea 12/29/2021 Active albuterol (ProAir HFA) 108 (90 Base) MCG/ACT inhaler Inhale 2 puffs every 6 (six) hours if needed for wheezing. 18 g 6 11/17/2023 Active Active Problems Problem Noted Date Diagnosed Date Encounter for routine adult health examination without abnormal findings 11/23/2023 Assessment & Plan (11/23/2023 11:13 AM EDT): Healthy adult as detailed above Recheck CBC to re-evaluate anemia Headaches resolved after figuring out dog allergy Continued advice to exercise 30 minutes daily and eat whole foods Iron deficiency anemia 11/23/2023 Overweight 11/23/2023 Encounters Date Type Department Care Team Description 03/04/2025 2:00 PM EST Office Visit [facility] [address] [place] [address] Debby Salmeron, WRIST CLOSER UTI symptoms 03/04/2025 Travel 01/02/2025 Telephone [facility] [address] [place] [address] Alejandra Patel MD DEC RECALL from Last 3 Months Social History Tobacco Use Types Packs/Day Years [...] not to disclose 2021 10:15 AM EDT Last Filed Vital Signs Vital Sign Reading Time Taken Comments Blood Pressure 132/87 03/04/2025 1:23 PM EST Pulse 82 03/04/2025 1:23 PM EST Temperature 36.7 C (98.1 F) 03/04/2025 1:23 PM EST Respiratory Rate 16 03/04/2025 1:23 PM EST Oxygen Saturation 99% 03/04/2025 1:23 PM EST Inhaled Oxygen Concentration - - Weight 89.8 kg (198 lb) 03/04/2025 1:23 PM EST Height 154.3 cm (5' 0.75 ) 11/17/2023 2:53 PM ED T Body Mass Index 37.72 11/17/2023 2:53 PM EDT Plan of Treatment Upcoming Encounters Date Type Department Care Team (Late st Contact Info) Description 03/25/2025 10:30 AM EST Office Visit [facility] [address] [place] [address] Alejandra Patel MD [address] [place], [place] [id number] Health Maintenance Due Date Last Done Comments HIV Screening 1997 Disability Screening 1997 Alcohol/Substance Use Screening 2009 Family Planning (PISQ) 2012 HPV Vaccines (1 - 3-dose series) 2012 Hepatitis C Screening 2015 DTaP/Tdap/Td Vaccines (1 - Tdap) 2016 Hepatitis B Vaccines (1 of 3 - 19+ 3-dose series) 2016 Depression Screening 11/16/2024 11/17/2023, 11/17/2023 SDOH Screening 11/16/2024 11/17/2023 COVID-19 Vaccine (1 - 2024-2 6 season) 2024 Influenza Vaccine (#1) 2024 Pap Smear 04/16/2025 04/16/2022, 04/11/2022 Tobacco Screening 03/04/2026 03/04/2025 Zoster Vaccines (1 of 2) 2047 RSV Patients and Patients Aged 60 years or older (1 - 1-dose 75+ series) 2072 HIB Vaccines Aged Out No longer eligi ble based on patient's age to complete this topic Hepatitis A Vaccines Aged Out No long er eligible based on patient's age to complete this topic IPV Vaccines Aged Out No longer eligi ble based on patient's age to complete this topic Meningococcal B Vaccine Aged Out No l onger eligible based on patient's age to complete this topic Meningococcal Vaccine Aged Out No sly nik eligible based on patient's age to complete this topic Pneumococcal Vaccine: Pediatrics (0 to 5 Years) and At-Risk Patients (6 to 49) Years Aged Out No longer eligible b ased on patient's age to complete this topic RSV under 20 months Aged Out No longe r eligible based on patient's age to complete this topic Rotavirus Vaccines Aged Out No longer eligible based on patient's age to complete this topic Procedures Procedure Name Priority Date/Time Associated Diagnosis Comments POCT URINALYSIS DIPSTICK Routine 03/04/2025 1:31 PM EST UTI symptoms IMAGE-GUIDED PAP W/AGE BASED SCR,W/CT/NG/TRICH Routine 04/16/2022 12:02 PM EST from Last 3 Months or Most Recently Relevant to Health Maintenance Results * POCT urinalysis dipstick manually resulted (CPT 07387) (03/04/2025 1:31 PM EST) Color, UA Yellow [...] Random) 03/04/2025 1:31 PM EST Debby Salmeron WRIST CLOSER POINT OF CARE TEST ENTER/EDIT ORDERABLES Final Result * Image-Guided Pap with Age-Based Screening??with CT/NG,??Trichomonas (04/16/2022 12:02 PM EST) Comment [facility] Comment: This order for age-based cervical cancer and STI screening follows ACOG guidelines(PB 168, 140, BUZ916). See individual assays for performing site location. Clinical Information: FIRST PAP FRX Polymerst LMP: 03/30/2022 [facility] [place] [employer] Prev. PAP: NO FRX Polymerst Prev. BX: NO FRX Polymerst SOURCE: None given [facility] Statement Of Adequacy: [facility] Comment: Satisfactory for evaluation. Endocervical/transformation zone component present. Interpretation/Re sult: Negative for intraepithelial lesion or malignancy. FRX Polymerst Infection Shift in vaginal rosibel suggestive of bacterial vaginosis. [employer] [place] [employer] Comment: This Pap test has been evaluated with computer assisted technology. [employer] [place] [employer] Trouble Locater: [facility] [employer] [place] [employer] Comment: MPG, CT(ASCP) CT screening location: [place] [address] (Always Message) [facility] Comment: EXPLANATORY NOTE: The Pap is a screening test for cervical cancer. It is not a diagnostic test and is subject to false negative and false positive results. It is most reliable when a satisfactory sample, regularly obtained, is submitted with relevant clinical findings and history, and when the Pap result is evaluated along with historic and current clinical information. Chlamydia trachomatis RNA, TMA, Urogenital NOT DETECTED NOT DETECTED [facility]X [employer] Neisseria gonorrhoeae RNA, TMA, Urogenital NOT DETECTED NOT DETECTED [facility] [employer] Comment [facility] Comment: The analytical performance characteristics of this assay, when used to test SurePath(TM) specimens have been determined by [facility]. The modifications have not been cleared or approved by the FDA. This assay has been validated pursuant to the CLIA regulations and is used for clinical purposes. For additional information, please refer to https://education.Tunaspot/faq/BGY615 (This link is being provided for information/ educational purposes only.) Trichomonas vaginalis, QL, TMA, PAP Vial NOT DETECTED NOT DETECTED [employer] Comment: The analytical performance characteristics of this assay have been determined by [facility]. The modifications have not been cleared or approved by the FDA. This assay has been validated pursuant to the CLIA regulations and is used for clinical purposes. For additional information, please refer to http://education.Tunaspot/ faq/Trichomonastma (This link is being provided for information/ educational purposes only.) 04/12/2022 9:5 6 AM EST Narrative [facility] - 04/16/2022 12:02 PM EST FASTING: UNKNOWN us [facility] External Provider LAB CYTOLOGY ORDERAB LES Final Result [facility] [address], [place] [address] [employer] [place] [employer] [address] [facility], ([address]) [place] [address] from Last 3 Months or Most Recently Relevant to Health Maintenance Insurance [facility] C3 Care Teams Brine Purifier Relationship Specialty Start Date End Date Alejandra Patel MD [address] [place] [address] PCP - General Family Medicine 11/12/21
[2025-03-04 23:55] LABS: CT PCR NOT DETECTED (Not Detect.); NG PCR NOT DETECTED (Not Detect.)
== END 2025-03-04 16:07 | disposition home or self-care (01) ==
LOC: HO.LNP 16:06
PROVIDERS: Visit Provider Nurse Practitioner Family
DX: R39.9 Unspecified symptoms and signs involving the genitourinary system (principal); Z20.2 Contact with and (suspected) exposure to infections with a predominantly sexual mode of transmission
CPT/HCPCS: 81515; 87491; 87591